=== PATIENT | female | born 1975 | race Caucasian/White ===

== ENCOUNTER 2019-06-03 09:33 | Day surgery (SDC) | payer OTHER ==
[2019-06-03] VITALS (7 sets, daily range): BP systolic 128–144; BP diastolic 76–88
[~2019-06-03] VITALS: Ht 162.6 cm; Wt 90.4 kg
[~2019-06-03 09:33] MED LIST: KETOROLAC 60 MG/2 ML VIAL (J1885) As Ordered ONE; LIDOCAINE 2% INJ 100 MG/5 ML SDV (FOR ANES.) As Ordered ONE; LR 1,000 ML IV ONE; ONDANSETRON 4MG/2ML VIAL (J2405) As Ordered ONE; ONE-TAB25 PO; ROCURONIUM BROMIDE 50 MG/5 ML VIAL As Ordered ONE; ceFAZolin SOD 2 GM in IV 1 EA IV ONE; dexameTHASONE 4 MG/ML 1ML VIAL (J1100) As Ordered ONE; propofoL 200 MG/20 ML VIAL As Ordered ONE
[2019-06-03 10:27] LABS: HEMATOCRIT 43.3 % (36.0-47.0); HEMOGLOBIN 14.7 g/dl (12.0-15.5); MEAN CORPUSCULAR HEMOGLOBIN 33.2 pg (27.0-33.0); MEAN CORPUSCULAR HGB CONC 33.9 g/dl (32.0-36.5); MEAN CORPUSCULAR VOLUME 97.7 fl (80.0-96.0); PLATELET COUNT, AUTOMATED 273 10^3/uL (150-450); RED BLOOD COUNT 4.43 10^6/uL (4.00-5.40); WHITE BLOOD COUNT 6.7 10^3/uL (4.0-10.0)
[2019-06-03] MEDS ORDERED: fentaNYL 250 MCG/5 ML INJECTION (J3010) As Ordered ONE (11:09)
[2019-06-03] MEDS ORDERED: MIDAZOLAM INJ 2 MG/2 ML VIAL (J2250) As Ordered ONE (11:10)
[2019-06-03] MEDS ORDERED: HYDROmorphone HCL 2 MG/ML 1ML VIAL (J1170) As Ordered ONE (12:32)
[2019-06-03] MEDS ORDERED: LABETALOL HCL 100 MG/20 ML VIAL As Ordered ONE (12:48)
[2019-06-03] MEDS ORDERED: ROCURONIUM BROMIDE 50 MG/5 ML VIAL As Ordered ONE (12:54)
[2019-06-03] MEDS ORDERED: propofoL 200 MG/20 ML VIAL As Ordered ONE (12:55)
[2019-06-03] MEDS ORDERED: SUGAMMADEX SODIUM 500 MG/5 ML VIAL (BRIDION) As Ordered ONE (14:22)
[2019-06-03] MEDS ORDERED: MORPHINE 1MG/ML IN 0.9% NACL 100ML IV BAG As Ordered ONE (15:06)
[2019-06-03] MEDS ORDERED: MORPHINE 1MG/ML IN 0.9% NACL 100ML IV BAG IV PRN (15:30)
[2019-06-03] MEDS ORDERED: diphenhydrAMINE INJ 50MG/ML VIAL (J1200) IV PRN (15:30)
[2019-06-03] MEDS ORDERED: EPIDURAL/PCA KEYS XX PRN (15:30)
[2019-06-03] MEDS ORDERED: LR 1,000 ML IV SCH (15:30)
[2019-06-03] MEDS ORDERED: NALBUPHINE HCL 10 MG/ML AMP (J2300) IV PRN (15:30)
[2019-06-03] MEDS ORDERED: fentaNYL 100 MCG/2 ML INJECTION (J3010) IV PRN (15:30)
[2019-06-03] MEDS ORDERED: NALOXONE INJ 0.4 MG/1 ML VIAL (J2310) IV PRN (15:30)
[2019-06-03] MEDS ORDERED: MORPHINE 2 MG/ML 1ML VIAL (J2270) IV PRN (15:30)
[2019-06-03] MEDS ORDERED: ONDANSETRON 4MG/2ML VIAL (J2405) IV PRN (15:30)
[2019-06-03] MEDS ORDERED: IBUPROFEN 600 MG TAB PO PRN (16:30)
[2019-06-03 19:19] LABS: HEMATOCRIT 34.2 % (36.0-47.0)
[2019-06-03 19:20] LABS: HEMOGLOBIN 11.7 g/dl (12.0-15.5)
[2019-06-03] MEDS: LR 1,000 ML IV SCH (22:00)
[2019-06-04] VITALS: BP 153/78
[2019-06-04 02:30] VITALS: BP 157/77
[2019-06-04 04:00] VITALS: BP 157/88
[2019-06-04] MEDS: LR 1,000 ML IV SCH (04:39)
[2019-06-04] MEDS ORDERED: NORCO, ANEXSIA 5/325MG TABLET (HYDROcodone/ACETAMINOPHEN) PO PRN (06:00)
[2019-06-04 08:00] VITALS: BP 129/70
[2019-06-04 08:25] LABS: MEAN CORPUSCULAR HEMOGLOBIN 33.4 pg (27.0-33.0); MEAN CORPUSCULAR HGB CONC 34.5 g/dl (32.0-36.5); PLATELET COUNT, AUTOMATED 210 10^3/uL (150-450); RED BLOOD COUNT 2.99 10^6/uL (4.00-5.40); WHITE BLOOD COUNT 8.5 10^3/uL (4.0-10.0)
[2019-06-04 10:07] LABS: HEMOGLOBIN 10.3 g/dl (12.0-15.5); MEAN CORPUSCULAR HEMOGLOBIN 33.6 pg (27.0-33.0); MEAN CORPUSCULAR HGB CONC 34.3 g/dl (32.0-36.5); MEAN CORPUSCULAR VOLUME 97.7 fl (80.0-96.0); PLATELET COUNT, AUTOMATED 217 10^3/uL (150-450); RED BLOOD COUNT 3.07 10^6/uL (4.00-5.40); WHITE BLOOD COUNT 8.4 10^3/uL (4.0-10.0)
--- NOTE | 2019-06-04 15:53 | RO ---
DATE OF PROCEDURE: PREOPERATIVE DIAGNOSIS/INDICATION FOR SURGERY: Pain and bleeding and failed ablation. POSTOPERATIVE DIAGNOSIS: Pain and bleeding and failed ablation. PROCEDURE: Laparoscopic assisted vaginal hysterectomy with salpingectomy. The patient retains her ovaries at her request. She had previous tubal, so the distal tubal stumps were removed not attached to the uterus. SURGEON: Dr. Dianne Perdomo QM CONSULTANT: Wanda Dillon ANESTHESIA: General endotracheal anesthesia. BRIEF DESCRIPTION OF PROCEDURE AND FINDINGS: Belinda was brought to the operating room where sufficient general endotracheal anesthesia was induced. She was prepped, draped and positioned in the usual sterile fashion. There was evidence on her exam of the previous ablation and some difficulty getting the manipulator placed. The uterus was good sized. A Acuña with the ability to backfill was placed. Attention was then turned to the abdomen. A transverse semi-lunar incision was made over the line of her previous surgical scar. Sharp and blunt dissection were continued to the level of the rectus fascia, which was transversely incised under direct visualization, grasped with Pamela clamps and secured with #0 Vicryl retention sutures. The peritoneum was then entered again under direct visualization in an open laparoscopic technique with the [place] cannula placed into the peritoneal cavity and CO2 insufflation then begun. After adequate CO2 insufflation, the peritoneal cavity was visualized. There were normal shiny peritoneal surfaces throughout. There were no excrescences, ascites, nor exudate. There was a scarring from the previous tubal ligation and a paratubal cyst on the patient's right but no significant lesion. Because the distal tubes were already from the uterus by the previous tubal ligation, decision was made to use the Enseal to remove the tubal stumps and then remove them out laparoscopically and then proceed with the hysterectomy. So, we did this removing both tubes and then turning our attention to the hysterectomy portion. With the utero-ovarian suspensory ligaments, carefully cauterized, transected after dissection with the Enseal I the ovaries on both sides. We then moved onto the round ligaments and on the left side on the round ligament there is considerable scarring and some pumping vasculature but this was on the uterine side not on the abdominal sidewall. We did cauterize this very aggressively and we were eventually successful but she did more bleeding than is typical here at [facility] where that bleeding began. Having completed the separation of the ovaries on the left and the round ligament on the left side, we went ahead to the right side. We did not run into similar vasculature on the right side despite the enlarged uterus, which of course was expected. Having the tubes and the round ligaments bilaterally, we went ahead and moved on to the vaginal portion of the case. With the uterine manipulator removed and the single-tooth tenacula placed on the anterior and posterior aspect of the cervix, then a circumferential incision made around the base of the cervix. Pumping vaginal vessels were noted and these were controlled laterally at the cardinal ligaments and with Allis clamps, then the dissection continued posteriorly to the uterosacral. We clamped, transected and ligated and held for later reattachment. The peritoneum of course entered posteriorly. I did try to suck out much of what had already bled but of course was not able to get all of the abdominal blood. We then continued the dissection anteriorly to create the bladder flap and then carefully clamped, transected and ligated the uterine vasculature bilaterally until we were approximately mid uterus where the uterine fundus was just a little too wide for the pelvis. So, we went ahead and bivalved the uterus so that we could bring one side at a time and doing so we were able to reach the line of the previous dissection and deliver the uterus, which weighed 227 grams, so not as large as some but certainly not small and rather widely. After delivery of the uterus there was also some pumping vessels at the right pelvis and the angle she did not have that much prolapse so some effort to get these under control but once we had vaginal vessels under control and the angles taken care of bilaterally we were able to close the cuff. We did place a vaginal packing and we went back above and looked with the scope and there was evidence of the previous bleeding but no persistent bleeding. So, the procedure was ended with the instruments removed, the CO2 released, the wound at the fascia at the umbilicus closed with #0 Vicryl suture and then the skin closed with #3-0 Vicryl in a subcuticular stitch with good approximation and hemostasis of both layers, and then dry sterile dressing was applied and the procedure was ended. Estimated blood loss for the procedure 700 mL. Fluid replacement was crystalloid. Complications none but she did have more than average bleeding. Condition and Disposition: Belinda tolerated the procedure well and was recovering in the recovery room in good condition.
== END 2019-06-04 11:00 | disposition home or self-care (01) ==
LOC: M SDC 09:33 → M PED 16:38 → M SDC 06-04 11:00
PROVIDERS: ATTEND Obstetrics & Gynecology
DX: R10.2 Pelvic and perineal pain (principal); N92.1 Excessive and frequent menstruation with irregular cycle; K58.8 Other irritable bowel syndrome; Z88.2 Allergy status to sulfonamides; Z91.040 Latex allergy status; Z88.0 Allergy status to penicillin
CPT/HCPCS: 36415; 58571; 81025; 85014; 85018; 85027; 86850; 86900; 86901; 88307; J0690; J1100; J1170; J1885; J2250; J2405; J3010

== ENCOUNTER → 2019-09-29 | Outpatient (REF) | payer OTHER ==
[~2019-09-29] MED LIST changes: -KETOROLAC 60 MG/2 ML VIAL (J1885) As Ordered ONE; -LIDOCAINE 2% INJ 100 MG/5 ML SDV (FOR ANES.) As Ordered ONE; -LR 1,000 ML IV ONE; -ONDANSETRON 4MG/2ML VIAL (J2405) As Ordered ONE; -ROCURONIUM BROMIDE 50 MG/5 ML VIAL As Ordered ONE; -ceFAZolin SOD 2 GM in IV 1 EA IV ONE; -dexameTHASONE 4 MG/ML 1ML VIAL (J1100) As Ordered ONE; -propofoL 200 MG/20 ML VIAL As Ordered ONE
== END ==
LOC: M LAB REF 18:05
PROVIDERS: ATTEND Physician Assistant
DX: C44.519 Basal cell carcinoma of skin of other part of trunk (principal); L91.8 Other hypertrophic disorders of the skin; D22.5 Melanocytic nevi of trunk

== ENCOUNTER → 2021-10-22 | Outpatient (REF) | payer OTHER | LOC: M SFHCDERM 17:13 | PROVIDERS: ATTEND Physician Assistant | DX: C44.301 Unspecified malignant neoplasm of skin of nose (principal) ==

== ENCOUNTER → 2023-03-05 | Outpatient (CLI) | payer OTHER | LOC: M WHC 09:04 | PROVIDERS: ATTEND Nurse Practitioner Family | DX: Z12.31 Encounter for screening mammogram for malignant neoplasm of breast (principal) ==

== ENCOUNTER → 2024-03-09 | Outpatient (CLI) | payer OTHER | LOC: M WHC 08:53 | PROVIDERS: ATTEND Nurse Practitioner Family | DX: Z12.31 Encounter for screening mammogram for malignant neoplasm of breast (principal) ==

== ENCOUNTER → 2024-03-23 | Outpatient (CLI) | payer OTHER | LOC: M WUC 14:56 | PROVIDERS: ATTEND Physician Assistant | DX: R05.9 Cough, unspecified (principal); J06.9 Acute upper respiratory infection, unspecified ==

== ENCOUNTER → 2024-03-30 | Outpatient (REF) | payer OTHER | LOC: M LAB REF 16:22 | PROVIDERS: ATTEND Physician Assistant Medical | DX: R05.9 Cough, unspecified (principal) ==